=== PATIENT | male | born 1990 | race Caucasian/White ===

== ENCOUNTER 2023-07-11 23:15 | Observation (INO) | payer OTHER, SELFPAY ==
--- NOTE | ~2023-07-11 | XR_ITS ---
Portable chest x-ray Comparison: None Clinical History: Chest pain Findings: Lungs are clear, without focal consolidation or pleural effusion. Cardiomediastinal silho uette is stable. Bones and soft tissues are unremarkable. Impression: Clear lungs. Reviewed, dictated and finalized at location M. Impression: Clear lungs.
--- NOTE | 2023-07-11 23:20 | ECG_ITS ---
SEE SCANNED COPY FOR CONFIRMED REPORT MTDD
[2023-07-11 23:24] VITALS: BP 147/92; PULSE 181; RESP 17; TEMP 36.7; O2SAT 100; O2SAT 99
[2023-07-11 23:36] VITALS: PULSE 180
[2023-07-11 23:37] LABS: Basophils Percent Auto 0.3 % (0.2-1.2); Eosinophils Absolute Auto 0.2 K/mm3 (0-0.3); Eosinophils Percent Auto 1.8 % (0-4.4); Hematocrit 47.1 % (42.0-52.0); Hemoglobin 16.1 g/dL (14.0-18.0); Immature Granulocyte Absolute 0.02 K/mm3 (0.00-0.031); Immature Granulocyte Percent A 0.2 % (0-0.5); Lymphocytes Absolute Auto 3.56 K/mm3 (0.9-3.2); Lymphocytes Percent Auto 32.8 % (18.3-44.2); Mean Corpuscular HGB Conc 34.2 g/dl (32-36); Mean Corpuscular Hemoglobin 29.3 pg (26-34); Mean Corpuscular Volume 85.8 fl (80-100); Mean Platelet Volume 10.5 fl (7.4-10.4); Monocytes Absolute Auto 0.7 K/mm3 (0.1-0.6); Monocytes Percent Auto 6.7 % (2.6-8.5); Neutrophils Absolute Auto 6.3 K/mm3 (1.3-6.7); Neutrophils Percent Auto 58.2 % (45.5-73.1); Platelet Count Result 218 k/mm3 (150-375); Red Blood Count 5.49 M/mm3 (4.6-6.20); Red Cell Distribution Width 13.4 % (11.5-14.5); White Blood Count 10.9 K/mm3 (4.5-10.0)
[2023-07-11 23:48] LABS: INR 0.9; Prothrombin Time 11.9 Seconds (11.1-14.7)
[2023-07-11 23:49] LABS: Partial Thromboplastin Time 31.4 Seconds (22.3-36.8)
[2023-07-11 23:51] LABS: Alanine Aminotransferase 61 U/L (6-50); Albumin Level 4.8 g/dL (3.5-5.1); Alkaline Phosphatase 68 U/L (38-126); Anion Gap 9 mmol/L (4-12); Aspartate Amino Transferase 39 U/L (17-59); Bilirubin,Total 0.5 mg/dL (0.2-1.3); Blood Urea Nitrogen 25 mg/dL (9-20); Calcium 9.7 mg/dL (8.4-10.2); Carbon Dioxide 29 mmol/L (22-30); Chloride 103 mmol/L (98-107); Estimated CRCL calculation 122 ml/min; Estimated Glomerular Filt Rate > 60; Glucose 127 mg/dL (65-110); Lipase 88 U/L (23-300); Potassium 3.2 mmol/L (3.4-5.0); Sodium 141 mmol/L (137-145)
[2023-07-11 23:56] VITALS: BP 145/90; PULSE 125; RESP 15; O2SAT 97
[2023-07-12] VITALS (41 sets, daily range): BP systolic 102–154; BP diastolic 61–97; PULSE 68–174; RESP 10–20; TEMP 36.2–37.1; O2SAT 94–100; BMI 34.6
--- NOTE | 2023-07-12 | ECHO_ITS ---
Patient Info Name: Augustine Calles Age: 33 years : 1990 Gender: Male Ht: 70 in Wt: 241 lbs BSA: 2.36 m2 HR: 108 bpm BP: 102 / 61 mmHg Heart Rhythm: Atrial Fibrillation, Tachycardia Technical Quality: Good Exam Date: 07/12/2023 7:24 AM Exam Location: Echo Lab Patient Status: Inpatient Admit Date: 07/12/2023 Staff Ordering Physician: Lyle Montana MD [employer] Supervisor: Alexandre Solorzano RDCS Attending Provider: Lyle Montana MD Exam Type: CA echo doppler color flow Study Info Indications - afib Complete two-dimensional, color flow and Doppler transthoracic echocardiogram is performed. Summary 1. Left ventricular chamber dimension is normal. 2. Left ventricular systolic function is normal, estimated at 55-60%. 3. Right ventricular chamber dimension is mildly enlarged. 4. Right ventricular systolic function is normal. 5. No significant valvular disease. Left Ventricle Left ventricular chamber dimension is normal. Left ventricular systolic function is normal, estimated at 55-60%. There is no increased left ventricular wall thickness. Right Ventricle Right ventricular chamber dimension is mildly enlarged. Right ventricular systolic function is normal. Left Atria Left atrial chamber dimension is normal. Right Atria Right atrial chamber dimension is normal. Atrial Septum Intact interatrial septum visualized by color flow imaging. Aortic Valve The aortic valve is not well visualized. There is no aortic valve stenosis. There is no aortic valve regurgitation. Pulmonic Valve The pulmonic valve is not well visualized. Mitral Valve There is trace mitral valve regurgitation. Tricuspid Valve There is trace tricuspid valve regurgitation. Pericardium/Pleural There is no pericardial effusion. Inferior Vena Cava Normal inferior vena cava with >50% collapse upon inspiration consistent with normal right atrial pressure, 3 mmHg. Aorta The aortic root size at the sinus of Valsalva is normal. Left Ventricular Outflow Tract Name Value Normal LVOT 2D LVOT Diameter 2.2 cm LVOT Doppler LVOT Peak Gradient 5 mmHg LVOT Mean Gradient 3 mmHg LVOT VTI 17 cm LVOT VTI/AV VTI Ratio 0.8 LVOT Stroke Volume 69 ml LVOT CO 8.5 l/min LVOT CI 3.6 l/min/m2 Pulmonic Valve Name Value Normal PV Doppler PV Peak Gradient 4 mmHg Mitral Valve Name Value Normal MV Doppler MV Peak Gradient 8 mmHg MV Mean Gradient 3 mmHg MV Decel [place]
[2023-07-12 00:01] LABS: Troponin I < 0.012 ng/mL (0.000-0.034)
[2023-07-12] MEDS: POTASSIUM CHLORIDE 20 MEQ ER TABLET 40 MEQ PO (00:03)
[2023-07-12] MEDS: dilTIAZem HCl INJ 25 MG/5 ML VIAL 20 MG IV PUSH (00:04)
[2023-07-12] MEDS: ASPIRIN 81 MG CHEWABLE TABLET 324 MG PO (00:04)
[2023-07-12] MEDS: SODIUM CHLORIDE 0.9% IV 1,000 ML 999 ML IV CONT (00:04)
[2023-07-12] MEDS: LORazepam INJ (*CRX) 2 MG/ML VIAL IV PUSH (00:11)
--- NOTE | 2023-07-12 00:16 | PC.NURSE ---
EDP made aware of pt HR in 170s after administration of ativan. EDP verbalizes we will continue to monitor heart rate. No further orders at this time.
[2023-07-12] MEDS: Please add drug allergy info to patient profile. 1 EACH XX (00:20)
--- NOTE | 2023-07-12 00:20 | PC.NURSE ---
adenosine returned and wasted in pyxis. no dose required at this time.
[2023-07-12] MEDS: dilTIAZem HCl INJ 25 MG/5 ML VIAL IV PUSH (00:35)
[2023-07-12] MEDS: dilTIAZem 100 MG/100 ML 100 MG/100 ML BAG IV CONT (00:35)
[2023-07-12 00:48] LABS: Appearance Urine Clear (Clear); Bilirubin Urine Negative (Negative); Blood Urine Negative (Negative); Color Urine Yellow (Yellow); Glucose Urine UA Negative (Negative); Ketones Urine Negative (Negative); Leukocyte Esterase Ur Negative LEU/UL (Negative); Nitrate Urine Negative (Negative); Protein Urine Negative (Negative); Specific Grav Ur 1.017 (1.001-1.035); Urobilinogen Urine 0.2 mg/dL (<2.0)
[2023-07-12 01:00] LABS: Add Urine Microscopic? NO
[2023-07-12 01:05] LABS: Creatine Kinase 118 U/L (55-170)
[2023-07-12] MEDS: AMIODARONE 150 MG/D5W 100 ML 150 MG/100 ML BAG 600 MG IV CONT (01:14)
[2023-07-12] MEDS: AMIODARONE 360 MG/D5W 200 ML 360 MG/200 ML BAG 33.33 MG IV CONT (01:39)
--- NOTE | 2023-07-12 01:41 | ED.CHESTPAIN ---
HPI - Chest Pain General Chief Complaint: Chest Pain Stated Complaint: cp Time Seen by Provider: 07/11/23 23:27 History of Present Illness HPI narrative: Patient is a 33-year-old male who presents to the emergency department this morning complaining of rapid heart rate. Patient states that he was sleeping and woke up feeling as though his heart rate was racing. Patient states that he does have a history of panic attacks, however, this does feel different. Patient states that at 1 point his heart rate which 200 due to a panic attack and he went to an ER and was given Ativan with resolution of his symptoms. He denies any history of arrhythmias, and denies any significant medical history. Patient is currently denying any chest pain, any shortness of breath, any nausea, vomiting, abdominal pain, dysuria or hematuria, constipation or diarrhea, melena or hematochezia, fevers or chills. There are no other modifying, alleviating, or precipitating factors at this time. Related Data Allergies Allergy/AdvReac Type Severity Reaction Status Date / Time Penicillins AdvReac Hives Verified 07/12/23 00:05 Review of Systems Review of Systems: All systems are reviewed and are negative unless stated otherwise in the HPI. Exam Narrative: General: Alert, awake, afebrile, in no acute distress. HEENT: PERRL, no rhinorrhea, no post nasal drip, oropharynx clear. Cardiovascular: Tachycardic with an irregular rhythm, no murmurs, rubs or gallops, no peripheral edema. Respiratory: Clear to auscultation bilaterally, no tachypnea, no wheezing, no rhonchi, no rubs, no respiratory distress. Abdomen: Soft, nontender, nondistended, no rebound, no guarding, no peritoneal signs. Musculoskeletal: No joint swelling or deformity, normal muscle tone. Skin: No rashes or petechia, no signs of infection. Neurological: Alert and oriented to person, place, and time. Follows all commands. No focal deficits, speech is clear and fluent. Course Vital Signs Vital signs: Vital Signs Temperature 98.1 F 07/11/23 23:24 Pulse Rate 181 H 07/11/23 23:24 Respiratory Rate 17 07/11/23 23:24 Blood Pressure 147/92 H 07/11/23 23:24 Pulse Oximetry 100 07/11/23 23:24 Oxygen Delivery Room Air 07/11/23 23:24 Temperature 98.1 F 07/11/23 23:24 Pulse Rate 139 H 07/12/23 02:14 Respiratory Rate 17 07/12/23 02:14 Blood Pressure 112/77 07/12/23 02:14 Pulse Oximetry 94 07/12/23 02:14 Oxygen Delivery Room Air 07/12/23 01:04 MDM - Chest Pain MDM Narrative Medical decision making narrative: The patient was evaluated by myself in the emergency department. History is obtained from patient who is an independent historian and physical exam was performed. External medical records were reviewed at this time. IV was established and pertinent tests were ordered. EKG was obtained which revealed atrial fibrillation with RVR at a rate of 167 beats per minute. No ST changes, T wave inversions or evidence of acute ischemia. EKG was independently interpreted by me and is currently pending official cardiology read. Patient was administered a 1 L IV fluid bolus at this time. Due to heart rate of 180, the side of the maneuver was initiated with no improvement patient's heart rate. At this time 20 mg of IV Cardizem was administered, no improvement of patient's heart rate. An additional 25 mg of IV Cardizem with improvement of patient's heart rate to 120s. At this time, patient was started on a Cardizem drip at a rate of 5. On repeat assessment of the patient, 30 minutes later, patient's heart rate is now ranging in the 150s to 180s. At this time, on-call prompt care rn was contacted, Dr. Bland and he recommended to stop the Cardizem and start amiodarone. Patient was administered 150 mg of IV and p.o. bolus and continued on an MU drip better rate of 1 milligrams/minute for the next 6 hours. Patient's heart rate currently arranging between 120 to 140's. Isho
--- NOTE | 2023-07-12 02:56 | ECG_ITS ---
SEE SCANNED COPY FOR CONFIRMED REPORT MTDD
--- NOTE | 2023-07-12 03:30 | ADMGEN ---
This patient, Augustine Calles, was admitted to IMU Room 210-01. Patient/family oriented to hospital policies and general routines including ID bracelet, bed and alarms, visiting hours, pain management, procedures, bathroom and other care routines, personal items, smoking policy, room service/diet, and visiting hours. Information on how to activate the Rapid Response Team has been discussed. Patient/Family are encouraged to report perceived risks to care and to ask questions if they do not understand what they are told or what they should do.
[2023-07-12 03:33] LABS: Troponin I 0.132 ng/mL (0.000-0.034)
--- NOTE | 2023-07-12 05:12 | PM.IMHP ---
H&P: HPI History of Present Illness Date/Time: 07/12/23 05:12 Chief Complaint: palpitation Narrative: patient is a pleasant 33-year-old male who presented to the emergency room complaining of rapid heart rate. Patient stated he was sleeping when he suddenly woke up and his heart was racing patient started feeling more panicky and was complaining of some difficulty breathing patient also noted that his heart rate was above 200 and patient came to the emergency room where he received 1 Ativan. Patient has no history of atrial fibrillation in the past does do any head trauma no shortness of breath nausea vomiting or diarrhea no fevers chills no injury of any stimulants no history of any drug use. hospital course patient was started on Cardizem to slow the heart rate which was not successful cardiology was consulted patient currently on amiodarone drip Review of Systems Review of Systems: All systems reviewed & are unremarkable except as noted in HPI and below PMFSH Social History Social History Smoking status: Never smoker Alcohol intake: never Substance use: never Do You Feel Safe in your Home?: Yes Lack of Transportation: No Lack of Food: Never True Current Housing: I Have Housing Concerned About Future Housing: No Difficulty Paying Gas/Electric Bills: No Difficulty Paying for Meds: No Currently Unemployed: No Education: Decline to Answer Difficulty w/ Childcare or Family Care: No Spiritual care concerns: No Meds Home Medications and Allergies Home Medications Medication Instructions Recorded Confirmed Type No Home Medications 07/12/23 07/12/23 History Allergies Allergy/AdvReac Type Severity Reaction Status Date / Time Penicillins AdvReac Hives Verified 07/12/23 03:42 Vital Signs Vital Signs - 24 hr 07/11/23 23:24 07/11/23 23:24 07/11/23 23:36 Temperature 36.7 C Pulse Rate 181 H 180 H Respiratory Rate 17 Blood Pressure 147/92 H Pulse Oximetry 100 99 Oxygen Delivery Room Air Room Air 07/12/23 00:35 07/12/23 00:39 07/12/23 01:14 Temperature Pulse Rate 158 H 138 H 173 H Respiratory Rate 18 Blood Pressure 154/91 H 116/82 123/88 Pulse Oximetry 97 Oxygen Delivery 07/12/23 01:39 07/12/23 01:39 07/11/23 23:56 Temperature Pulse Rate 130 H 125 H 125 H Respiratory Rate 15 Blood Pressure 127/83 127/83 145/90 H Pulse Oximetry 97 Oxygen Delivery 07/12/23 00:06 07/12/23 00:07 07/12/23 00:17 Temperature Pulse Rate 140 H 174 H 162 H Respiratory Rate 16 Blood Pressure 143/75 H Pulse Oximetry 100 Oxygen Delivery 07/12/23 00:57 07/12/23 00:57 07/12/23 01:02 Temperature Pulse Rate 155 H 155 H 169 H Respiratory Rate 10 L Blood Pressure 129/90 123/88 Pulse Oximetry 95 Oxygen Delivery 07/12/23 01:04 07/12/23 01:17 07/12/23 01:21 Temperature Pulse Rate 170 H 170 H Respiratory Rate Blood Pressure 125/97 H 125/97 H Pulse Oximetry 100 Oxygen Delivery Room Air 07/12/23 01:27 07/12/23 01:27 07/12/23 02:14 Temperature Pulse Rate 150 H 145 H 147 H Respiratory Rate 12 Blood Pressure 125/97 H Pulse Oximetry 95 Oxygen Delivery 07/12/23 02:14 07/12/23 02:50 07/12/23 02:50 Temperature Pulse Rate 139 H 127 H 122 H Respiratory Rate 17 15 Blood Pressure 112/77 122/89 Pulse Oximetry 94 95 Oxygen Delivery 07/12/23 03:17 07/12/23 03:30 07/12/23 04:11 Temperature 37.1 C Pulse Rate 126 H 106 H Respiratory Rate 13 15 Blood Pressure 108/75 123/65 Pulse Oximetry 97 96 Oxygen Delivery Room Air 07/12/23 04:00 Temperature Pulse Rate 110 H Respiratory Rate Blood Pressure Pulse Oximetry Oxygen Delivery Exam Narrative: GENERAL: Well appearing, no acute distress. HEAD: Normocephalic, atraumatic. NECK: Supple. No adenopathy, no masses. RESPIRATORY: respirations nonlabored. , no ra
[2023-07-12 06:20] LABS: Hematocrit 46.8 % (42.0-52.0); Hemoglobin 15.6 g/dL (14.0-18.0); Mean Corpuscular HGB Conc 33.3 g/dl (32-36); Mean Corpuscular Hemoglobin 29.3 pg (26-34); Mean Platelet Volume 10.7 fl (7.4-10.4); Platelet Count Result 235 k/mm3 (150-375); Red Blood Count 5.32 M/mm3 (4.6-6.20); Red Cell Distribution Width 13.3 % (11.5-14.5); White Blood Count 9.3 K/mm3 (4.5-10.0)
[2023-07-12 06:47] LABS: Troponin I 0.095 ng/mL (0.000-0.034)
[2023-07-12 06:52] LABS: Alanine Aminotransferase 49 U/L (6-50); Albumin Level 4.2 g/dL (3.5-5.1); Alkaline Phosphatase 65 U/L (38-126); Anion Gap 9 mmol/L (4-12); Aspartate Amino Transferase 31 U/L (17-59); Bilirubin,Total 0.4 mg/dL (0.2-1.3); Blood Urea Nitrogen 19 mg/dL (9-20); Calcium 9.4 mg/dL (8.4-10.2); Carbon Dioxide 21 mmol/L (22-30); Chloride 111 mmol/L (98-107); Cholesterol 211 mg/dL (0-200); Estimated CRCL calculation 140 ml/min; Estimated Glomerular Filt Rate > 60; Glucose 141 mg/dL (65-110); HDL Direct 48 mg/dL; Potassium 4.2 mmol/L (3.4-5.0); Sodium 141 mmol/L (137-145); Triglycerides 91 mg/dL (<150)
[2023-07-12 07:02] LABS: LDL Cholesterol Direct 143 mg/dL
[2023-07-12 07:31] LABS: Hemoglobin A1C 4.9 % (<5.7)
[2023-07-12] MEDS: AMIODARONE 360 MG/D5W 200 ML 360 MG/200 ML BAG 16.67 MG IV CONT ×2 (08:12→19:56)
--- NOTE | 2023-07-12 09:42 | PM.CNCAR ---
Assessment and Plan Assessment and plan (1) Atrial fibrillation with RVR: Code(s): I48.91 - Unspecified atrial fibrillation Status: Acute Assessment and Plan: I had a lengthy discussion with the patient regarding new diagnosis of atrial fibrillation, pathophysiology, next management steps. Discussed rate control vs rhythm control, management strategies of both, risks vs benefits of both strategies. After discussion with the patient, he prefers the least invasive route for now, therefore, will proceed with rate control strategy. Will continue with Amiodarone drip for now to see if this chemically converts the patient. Start Metoprolol 50mg BID, increase as tolerated. If his atrial fibrillation is difficult to rate control, he is agreeable to CHIQUI-guided DCCV at that point, but would prefer to hold off on electrical cardioversion if possible for the time being. TSH level is 10. Will check free T4 level. Management as per Hospitalist. Echocardiogram with preserved LVEF, no significant valvular disease. Has symptoms concerning for AC, he will need outpatient sleep study. [id number] is 0. Does not need long-term anticoagulation. He has been started on therapeutic Lovenox. I will continue this for now in case he needs to undergo electrical cardioversion. If he undergoes DCCV, he will need to be on therapeutic anticoagulation (with NOAC) for 30 days following DCCV. I did discuss this with the patient. Will keep him NPO at midnight in case we pursue CHIQUI-guided DCCV tomorrow. Will arrange close outpatient follow up with me. Patient is also interested in learning more about ablation procedure -- will get him referred to our [facility], Dr. Beal. (2) Hypokalemia: Code(s): E87.6 - Hypokalemia Status: Acute Assessment and Plan: Keep electrolytes optimized. (3) Elevated TSH: Code(s): R79.89 - Other specified abnormal findings of blood chemistry Status: Acute Assessment and Plan: TSH level is 10. Will check free T4 level. Management as per Hospitalist. (4) Elevated troponin: Code(s): R79.89 - Other specified abnormal findings of blood chemistry Status: Acute Assessment and Plan: Likely due to demand ischemia from RVR. No anginal symptoms. History of Present Illness History of Present Illness Consult date/time: 07/12/23 09:42 Requesting physician: Hayden Mooney MD Consult reason: atrial fibrillation Reason For Visit: Palpitations Narrative: We are consulted for atrial fibrillation with RVR. This is a 33 year old male with no past medical history, not on any medications at home who presented to [place] ER for palpitations, rapid heart rate that began around 11PM last night. No chest pain, shortness of breath. Has not had palptiations before (has had panic attacks in the past, but this felt different). In the ER, he was noted to be in atrial fibrillation with RVR. Patient was given 1L fluid bolus. Due to heart rate in the 180s, they attempted Valsalva maneuver with no improvement. Given 20mg IV Cardizem with no improvement. Given an additional 25mg IV Cardizem with improvement to the 120s. Patient was then started on low dose Cardizem drip at a rate of 5. However, then heart rate increased back up to 150s-180s, at which time the ER contacted us for consultation. We recommended Amiodarone drip instead of Cardizem. Patient's heart rate improved with Amiodarone. Patient was given PO Potassium for potassium level of 3.2. Of note, TSH level is 10. Patient denies any alcohol use, tobacco use, recreational drug use. No caffeine or supplements. His reports he snores a lot. Review of Systems Review of Systems: All systems reviewed & are unremarkable except as noted in HPI and below (HPI) [facility] Social History Social History Smoking status: Never smoker Alcohol intake: never Substance use: gregor
[2023-07-12] MEDS: ENOXAPARIN 100 MG/ML SYRINGE SUB-Q ×2 (10:18→20:00)
[2023-07-12] MEDS: METOPROLOL TARTRATE 50 MG TAB PO ×2 (10:18→20:01)
[2023-07-12 10:26] LABS: Free T4 Free Thyroxine 0.91 ng/mL (0.78-2.19)
--- NOTE | 2023-07-12 12:13 | PM.IMPN ---
Progress Note: A&P Assessment and Plan (1) Atrial fibrillation with RVR: Code(s): I48.91 - Unspecified atrial fibrillation Status: Acute (2) Hypokalemia: Code(s): E87.6 - Hypokalemia Status: Acute (3) Elevated TSH: Code(s): R79.89 - Other specified abnormal findings of blood chemistry Status: Acute Plan #-Atrial fibrillationNew onset newly diagnosedFailed Cardizem and currently on amiodarone drip. Cardiology consulted. Echo ordered. Elevated TSH. Lovenox started. Echo with no significant valvular disease normal EF #Elevated troponin with a calabrese suggesting a non-ST elevation OR likely related to A. fib with RVR #Elevated TSH: We will await the placement until if it resolves. # DVT prophylaxis Lovenox Subjective Date/time seen: 07/12/23 12:13 Interval history: Feels a littlel better. No chest pain or shortness of breath. Currently on amiodarone drip. Heart rate in the 110s.No history of smoking alcohol or illicit drug use. No prior history of atrial fibrillation. Review of Systems Review of Systems: All systems reviewed & are unremarkable except as noted in HPI and below Exam Narrative: GENERAL: Well appearing, no acute distress. HEAD: Normocephalic, atraumatic. NECK: Supple. No adenopathy, no masses. RESPIRATORY: respirations nonlabored. , no rales, wheezing. CARDIOVASCULAR: IRRegular rate and rhythm without murmurs, Tachycardic mild . Peripheral pulses 2+ and equal bilaterally. ABDOMINAL: Soft, nontender, nondistended, no hepatosplenomegaly. Normoactive BS. MUSCULOSKELETAL: no Epigastric and no hypochondrial tenderness SKIN: Warm, dry, NEURO: A&O X3. Moves all extremities Objective Data Vital Signs Vital Signs: Vital Signs - 24 hr 07/11/23 23:24 07/11/23 23:24 07/11/23 23:36 Temperature 98.1 F Pulse Rate 181 H 180 H Respiratory Rate 17 Blood Pressure 147/92 H Pulse Oximetry 100 99 Oxygen Delivery Room Air Room Air 07/12/23 00:35 07/12/23 00:39 07/12/23 01:14 Temperature Pulse Rate 158 H 138 H 173 H Respiratory Rate 18 Blood Pressure 154/91 H 116/82 123/88 Pulse Oximetry 97 Oxygen Delivery 07/12/23 01:39 07/12/23 01:39 07/11/23 23:56 Temperature Pulse Rate 130 H 125 H 125 H Respiratory Rate 15 Blood Pressure 127/83 127/83 145/90 H Pulse Oximetry 97 Oxygen Delivery 07/12/23 00:06 07/12/23 00:07 07/12/23 00:17 Temperature Pulse Rate 140 H 174 H 162 H Respiratory Rate 16 Blood Pressure 143/75 H Pulse Oximetry 100 Oxygen Delivery 07/12/23 00:57 07/12/23 00:57 07/12/23 01:02 Temperature Pulse Rate 155 H 155 H 169 H Respiratory Rate 10 L Blood Pressure 129/90 123/88 Pulse Oximetry 95 Oxygen Delivery 07/12/23 01:04 07/12/23 01:17 07/12/23 01:21 Temperature Pulse Rate 170 H 170 H Respiratory Rate Blood Pressure 125/97 H 125/97 H Pulse Oximetry 100 Oxygen Delivery Room Air 07/12/23 01:27 07/12/23 01:27 07/12/23 02:14 Temperature Pulse Rate 150 H 145 H 147 H Respiratory Rate 12 Blood Pressure 125/97 H Pulse Oximetry 95 Oxygen Delivery 07/12/23 02:14 07/12/23 02:50 07/12/23 02:50 Temperature Pulse Rate 139 H 127 H 122 H Respiratory Rate 17 15 Blood Pressure 112/77 122/89 Pulse Oximetry 94 95 Oxygen Delivery 07/12/23 03:17 07/12/23 03:30 07/12/23 04:11 Temperature 98.8 F Pulse Rate 126 H 106 H Respiratory Rate 13 15 Blood Pressure 108/75 123/65 Pulse Oximetry 97 96 Oxygen Delivery Room Air 07/12/23 04:00 07/12/23 06:00 07/12/23 06:00 Temperature 98.2 F Pulse Rate 110 H 100 108 H Respiratory Rate 14 Blood Pressure 102/61 Pulse Oximetry 98 Oxygen Delivery 07/12/23 07:53 07/12/23 10:18 07/12/23 08:12 Temperature 98.4 F Pulse Rate 100 123 H 113 H Respiratory Rate 18 Blood Pressure 127/63 Pulse Oximetry 99 Oxygen Delivery Intake/Output Intake/Output: Intake &
[2023-07-13] VITALS (17 sets, daily range): BP systolic 121–142; BP diastolic 69–80; PULSE 69–87; RESP 14–20; TEMP 35.9–37.4; O2SAT 97–99
[2023-07-13 04:17] LABS: Basophils Percent Auto 0.3 % (0.2-1.2); Eosinophils Absolute Auto 0.2 K/mm3 (0-0.3); Eosinophils Percent Auto 2.4 % (0-4.4); Hemoglobin 16.3 g/dL (14.0-18.0); Immature Granulocyte Absolute 0.03 K/mm3 (0.00-0.031); Immature Granulocyte Percent A 0.3 % (0-0.5); Lymphocytes Absolute Auto 2.37 K/mm3 (0.9-3.2); Mean Corpuscular HGB Conc 33.3 g/dl (32-36); Mean Corpuscular Hemoglobin 29.3 pg (26-34); Mean Corpuscular Volume 88.1 fl (80-100); Mean Platelet Volume 10.8 fl (7.4-10.4); Monocytes Absolute Auto 0.6 K/mm3 (0.1-0.6); Monocytes Percent Auto 7.3 % (2.6-8.5); Neutrophils Absolute Auto 5.5 K/mm3 (1.3-6.7); Neutrophils Percent Auto 62.7 % (45.5-73.1); Platelet Count Result 208 k/mm3 (150-375); Red Blood Count 5.56 M/mm3 (4.6-6.20); Red Cell Distribution Width 13.8 % (11.5-14.5); White Blood Count 8.8 K/mm3 (4.5-10.0)
[2023-07-13 04:31] LABS: Alanine Aminotransferase 45 U/L (6-50); Alkaline Phosphatase 62 U/L (38-126); Anion Gap 8 mmol/L (4-12); Aspartate Amino Transferase 27 U/L (17-59); Bilirubin,Total 0.9 mg/dL (0.2-1.3); Blood Urea Nitrogen 15 mg/dL (9-20); Carbon Dioxide 23 mmol/L (22-30); Chloride 107 mmol/L (98-107); Estimated CRCL calculation 159 ml/min; Estimated Glomerular Filt Rate > 60; Glucose 91 mg/dL (65-110); Sodium 138 mmol/L (137-145)
--- NOTE | 2023-07-13 07:21 | ECG_ITS ---
SEE SCANNED COPY FOR CONFIRMED REPORT MTDD
[2023-07-13] MEDS: AMIODARONE 360 MG/D5W 200 ML 360 MG/200 ML BAG 16.67 MG IV CONT (07:50)
[2023-07-13] MEDS: METOPROLOL TARTRATE 50 MG TAB PO (08:07)
[2023-07-13] MEDS: ENOXAPARIN 100 MG/ML SYRINGE SUB-Q (08:08)
--- NOTE | 2023-07-13 08:58 | PM.PNCARD ---
Progress Note: A&P Assessment and Plan (1) Atrial fibrillation with RVR: Code(s): I48.91 - Unspecified atrial fibrillation Status: Acute Assessment and Plan: New diagnosis of atrial fibrillation. Converted to sinus rhythm on amiodarone. Discontinue amiodarone gtt - wish to avoid assisted amiodarone therapy because of his young age Will start Toprol XL 50mg daily for rhythm maintenance Echocardiogram with preserved LVEF, no significant valvular disease. Has symptoms concerning for AC, he will need outpatient sleep study. [id number] is 0. Does not need long-term anticoagulation. Patient is from [place], [place] therefore will not be following with our practice. He does not have a PCP. Instructed him to establish with PCP so cardiology referral can be initiated. Also needs outpatient sleep study. Patient verbalized understanding of management strategy and recommendations. OK for discharge from a cardiac perspective. (2) Hypokalemia: Code(s): E87.6 - Hypokalemia Status: Acute Assessment and Plan: Keep electrolytes optimized. (3) Elevated TSH: Code(s): R79.89 - Other specified abnormal findings of blood chemistry Status: Acute Assessment and Plan: TSH level is 10, Free T4 0.91 (4) Elevated troponin: Code(s): R79.89 - Other specified abnormal findings of blood chemistry Status: Acute Assessment and Plan: Likely due to demand ischemia from RVR. No anginal symptoms. Subjective Date/time seen: 07/13/23 08:58 Interval history: Cardiology follow up for atrial fibrillation He converted to sinus rhythm last evening and remains in sinus rhythm now. No cardiovascular complaints today. Review of Systems Review of Systems: All systems reviewed & are unremarkable except as noted in HPI and below (HPI) Exam Const: General: comfortable and no acute distress HENMT: Mouth: Yes moist mucous membranes Eyes: General: appearance normal, both eyes and all related structures Sclera: sclerae normal Neck: Neck: supple Resp: Effort & Inspection: normal respiratory effort Auscultation: clear to auscultation bilaterally Cardio: Rate: regular rate Rhythm: regular rhythm Skin: General skin exam: normal color Neuro: Speech: normal speech Psych: Mental Status: mental status grossly normal Affect: normal affect Objective Data Vital Signs Vital Signs: Vital Signs - 24 hr 07/12/23 10:18 07/12/23 10:00 07/12/23 12:00 Temperature Pulse Rate 123 H 87 97 Respiratory Rate Blood Pressure Pulse Oximetry Oxygen Delivery 07/12/23 12:00 07/12/23 14:00 07/12/23 15:20 Temperature 36.2 C L Pulse Rate 82 85 Respiratory Rate 20 Blood Pressure 116/75 Pulse Oximetry 97 Oxygen Delivery Room Air 07/12/23 16:00 07/12/23 16:00 07/12/23 10:25 Temperature Pulse Rate 93 107 H Respiratory Rate Blood Pressure Pulse Oximetry Oxygen Delivery Room Air 07/12/23 12:05 07/12/23 14:26 07/12/23 16:16 Temperature Pulse Rate 89 97 82 Respiratory Rate Blood Pressure Pulse Oximetry Oxygen Delivery 07/12/23 18:00 07/12/23 18:55 07/12/23 19:56 Temperature Pulse Rate 80 80 76 Respiratory Rate Blood Pressure Pulse Oximetry Oxygen Delivery 07/12/23 19:56 07/12/23 20:01 07/12/23 20:15 Temperature 36.6 C Pulse Rate 76 75 72 Respiratory Rate 20 Blood Pressure 125/77 Pulse Oximetry 97 Oxygen Delivery 07/12/23 20:00 07/12/23 22:00 07/12/23 20:00 Temperature 36.2 C L Pulse Rate 70 73 Respiratory Rate 20 Blood Pressure 134/82 Pulse Oximetry 96 Oxygen Delivery Room Air 07/12/23 22:00 07/12/23 23:38 07/13/23 00:00 Temperature 36.4 C L Pulse Rate 73 68 Respiratory Rate 18 Blood Pressure 121/83 Pulse Oximetry 98 Oxygen Delivery Room Air 07/13/23 01:44 07/13/23 00:00 07/13/23 03:44 Temperature 36.6 C 36.5 C Puls
--- NOTE | 2023-07-13 09:03 | PM.IMPN ---
Progress Note: A&P Assessment and Plan (1) Atrial fibrillation with RVR: Code(s): I48.91 - Unspecified atrial fibrillation Status: Acute Assessment and Plan: 07/13/23: New onset Patient originally started on Cardizem which was not successful for an decreasing his rate and was transitioned over to amiodarone infusion. Metoprolol ER 50 mg daily ordered Amiodarone infusion stopped. Stop Lovenox and start Eliquis dosing for A fib Cardiology consulted and following Patient wishes to do conservative treatment at this time however if the amiodarone infusion does not convert him he will likely need CHIQUI with cardioversion. Continue cardiac monitoring and IMU status Will get ApneaLink tonight to rule out obstructive sleep apnea (2) Elevated troponin: Code(s): R79.89 - Other specified abnormal findings of blood chemistry Status: Acute Assessment and Plan: 07/13/23: Troponin 0.012>, 0.132> 0.095 Likely demand ischemia Will get ApneaLink tonight to rule out obstructive sleep apnea (3) Hypokalemia: Code(s): E87.6 - Hypokalemia Status: Acute Assessment and Plan: 07/13/23: Potassium today 4.0 No additional replacement needed at this time Resolved (4) Elevated TSH: Code(s): R79.89 - Other specified abnormal findings of blood chemistry Status: Acute Assessment and Plan: 07/13/23: TSH 10.9, free T4 0.91 Time Spent With Patient Time with patient: Greater than 35 minutes Subjective Date/time seen: 07/13/23 09:03 Interval history: This is a 33-year-old male who presented to the hospital on 07/12/2023 with complaints of palpitations. Workup in the hospital included a chest x-ray which was negative. Initial labs showed a white blood cell count of 10.9, potassium 3.2, blood sugar 127, hemoglobin A1c 4.9, ALT 61, troponin 0.012> 0.132> 0.095, cholesterol 211, TSH 10.9, free T4 0.91. UA was obtained and was negative. Echocardiogram showing normal LV systolic function with an estimated EF of 55-60%, normal RV systolic function. Initial EKG showed AFib with RVR with a rate of 121. He was initially started on Cardizem without any improvement in his rate. Cardiology was consulted the patient was started on amiodarone drip and was transferred to the IMU for closer monitoring. On examination today patient is alert and oriented x3, lying in the bed. Patient denies any fever, chills, nausea, vomiting, diarrhea, abdominal pain, chest pain, shortness of breath. Patient is now back in NSR. He was taken off Amiodarone infusion and put on Metoprolol for rate control. Will switch Lovenox to Eliquis today. Labs today were essentially unremarkable. Will get Apnea link tonight to see if he has AC as a contributing factor. If that is positive he will need to follow up with his PCP and get appropriate sleep study. Patient states that he does snore, admits that he jerks and gasps for air in his sleep quite often, patient reports feeling tired like he has not rested in the mornings. He also admits that he gained 30 pounds and reports that when his weight was less he had good sleep. He had a sleep study in 2014 with concerns for sleep apnea but he didn't have sleep apnea at that point however that was when his weight was lower. Cardiology states he is good to discharge from their standpoint. He can likely discharge in the morning after having his apnea link and transition to Eliquis. Consult to care coordination for Eliquis coverage. Review of Systems Review of Systems: All systems reviewed & are unremarkable except as noted in HPI and below Constitutional: Constitutional: Reports as per HPI and Reports no additional constitutional complaints Eyes: Eyes: Reports as per HPI and Reports no additional eye complaints ENT: Reports system reviewed and no additional complaints, except as documented and Reports as per HPI Cardiovascular: Cardiovascular: Reports as per HPI and Reports
--- NOTE | 2023-07-13 12:47 | PM.DS ---
DS: Admitting Diagnosis Discharge Date 07/13/23 Admitting Diagnosis A fib RVR NSTEMI DS: Summary Hospital Course Reason for hospitalization: A fib RVR NSTEMI Hospital Course: This is a 33-year-old male who presented to the hospital on 07/12/2023 with complaints of palpitations.? Workup in the hospital included a chest x-ray which was negative.? Initial labs showed a white blood cell count of 10.9, potassium 3.2, blood sugar 127, hemoglobin A1c 4.9, ALT 61, troponin 0.012> 0.132> 0.095, cholesterol 211, TSH 10.9, free T4 0.91.? UA was obtained and was negative.? Echocardiogram showing normal LV systolic function with an estimated EF of 55-60%, normal RV systolic function.? Initial EKG showed AFib with RVR with a rate of 121.? He was initially started on Cardizem without any improvement in his rate.? Cardiology was consulted the patient was started on amiodarone drip and was transferred to the IMU for closer monitoring. On examination today patient is alert and oriented x3, lying in the bed.? Patient denies any fever, chills, nausea, vomiting, diarrhea, abdominal pain, chest pain, shortness of breath. Patient is now back in NSR. He was taken off Amiodarone infusion and put on Metoprolol for rate control. Will switch Lovenox to Eliquis today.? Labs today were essentially unremarkable. I did assess for sleep apnea. Patient states that he does snore, admits that he jerks and gasps for air in his sleep quite often, patient reports feeling tired like he has not rested in the mornings. He also admits that he gained 30 pounds and reports that when his weight was less he had good sleep. He had a sleep study in 2014 with concerns for sleep apnea but he didn't have sleep apnea at that point however that was when his weight was lower. Cardiology states he is good to discharge from their standpoint. He can be discharged today and will need to follow up with his primary care physician in 1 week and he will need an outpatient sleep study done for evaluation of sleep apnea considering his weight has changed, his new onset AFib, and demand ischemia. Patient is stable for discharge at this time. He will be discharged on Eliquis and metoprolol ER 50 mg daily. Final diagnosis: AFib RVR, new onset, NSTEMI? Status at Discharge Cognitive/behavioral status at discharge: Alert oriented x4 Functional status at discharge: independent ambulation Overall status at discharge: patient is progressing back to baseline Time Spent with Patient Time attestation: Total time spent providing and/or coordinating discharge services: Time spent: Greater than 30 minutes Exam Narrative: General: In no acute distress, well nourished Head: atraumatic, no encephalopathy Eyes: EOMI, PERRLA, sclera clear ENT: moist mucous membranes, nasal passages clear Neck: supple, no JVD, no adenopathy, trachea midline Cardiac: Normal S1 and S2. Normal sinus rhythm No murmur, gallops or friction rubs, peripheral pulses intact. Respiratory: Lungs clear to auscultation, no adventitious lung sounds, currently on room air Gastrointestinal: soft, non-distended, non-tender, normoactive bowel sounds. : voiding without difficulty. Extremities: moves all extremities well, no edema, good ROM, strength 5/5 Skin: clean, dry, intact. No wounds or lesions. Neuro: Alert and oriented x4, cranial nerves intact, no neuro deficits. Psych: normal mood, normal affect, interactive DS: Data Data Completed and Pending Completed studies during hospitalization: Chest x-ray Pending studies at discharge: None Labs on day of discharge: Labs from last 24 hours 07/13/23 03:53 WBC 8.8 RBC 5.56 Hgb 16.3 Hct 49.0 MCV 88.1 MCH 29.3 MCHC 33.3 RDW 13.8 Plt Count 208 MPV 10.8 H Immature Gran % (Auto) 0.3 Neut % (Auto) 62.7 Lymph % (Auto) 27.0 [place] % (Auto) 7.3 Eos % (Auto) 2.4 Baso % (Auto) 0.3 Lymph # (Auto) 2.37 [place] # (Auto) 0.6 Eos # (Auto) 0.2 Baso # (Auto) 0.0 Abs Immat
== END 2023-07-13 13:30 | disposition home or self-care (01) ==
LOC: ANHED 07-12 01:49 → ANHIMU 07-12 04:39
PROVIDERS: Internal Medicine; Admitting Provider Internal Medicine; Emergency Provider Emergency Medicine; Visit Provider Internal Medicine
DX: I21.4 Non-ST elevation (NSTEMI) myocardial infarction (principal); I48.91 Unspecified atrial fibrillation; E87.6 Hypokalemia; R79.89 Other specified abnormal findings of blood chemistry
CPT/HCPCS: 36415; 71045; 80053; 80061; 81003; 82550; 83036; 83690; 83735; 84439; 84443; 84484; 85025; 85027; 85610; 85730; 93005; 93306; 96365; 96366; 96367; 96375; 99285; A9270; G0378; J0153; J0282; J1650; J2060; J7030